=== PATIENT | male | born 1995 | race African-American/Black ===

== ENCOUNTER 2020-08-18 04:41 | Emergency (ER) | payer BC, MEDICAID ==
[~2020-08-18] VITALS: Ht 170.2 cm; Wt 59.0 kg
[2020-08-18 04:47] VITALS: Ht 170.2 cm; Wt 59.0 kg
[2020-08-18 07:26] VITALS: BP 126/84
== END 2020-08-18 07:26 ==
LOC: ED 04:41
DX: S05.12XA Contusion of eyeball and orbital tissues, left eye, initial encounter (principal); F10.129 Alcohol abuse with intoxication, unspecified; Y04.2XXA Assault by strike against or bumped into by another person, initial encounter; Y93.89 Activity, other specified; Y92.89 Other specified places as the place of occurrence of the external cause; Y99.8 Other external cause status; Y90.9 Presence of alcohol in blood, level not specified

== ENCOUNTER 2020-08-18 04:41 | Emergency (ER) | payer OTHER | END 2020-08-18 07:26 | LOC: ED 04:41 | DX: Z02.89 Encounter for other administrative examinations (principal) ==